=== PATIENT | female | born 1990 | race African-American/Black ===

== ENCOUNTER 2017-08-17 20:14 | Emergency (ER) | payer OTHER ==
[~2017-08-17] VITALS: Ht 160 cm; Wt 125.6 kg
[~2017-08-17 20:14] MED LIST: AMOX875T PO; HYDR-79 PO; PRAZ2CAP2; PROM25SU32 RC; SERT100T8
[2017-08-17 20:15] VITALS: BP 137/68
[2017-08-17] MEDS ORDERED: LIDOCAINE 2%/EPI 1:100,000 20 ML VIAL. IJ ONE (20:45)
[2017-08-17] MEDS ORDERED: HYDROcodone/APAP 5/325MG 1 TAB TABLET PO ONE (20:45)
[2017-08-17] MEDS ORDERED: SULF1TAB23 PO (21:26)
--- NOTE | 2017-08-17 21:26 | PHYS DOC ---
Past History Past Medical History: Migraines Past Surgical History: No Surgical History Smoking: Non-smoker Alcohol Use: None Drug Use: None Adult General Chief Complaint Chief Complaint: ABSCESS HPI HPI Patient is a 27 year old female who presents with thigh abscess. The patient reports 1 week history of abscess to left medial thigh which is becoming larger & more painful. Denies fevers/chills, nausea, vomiting. History of previous abscess to right thigh requiring I&D. Denies history of diabetes. Review of Systems Review of Systems Constitutional: Denies fever or chills HENT: Denies nasal congestion or sore throat Respiratory: Denies cough or shortness of breath Cardiovascular: Denies chest pain GI: Denies abdominal pain, nausea, vomiting Musculoskeletal: Denies back pain or joint pain Integument: Reports abscess Neurologic: Denies headache Current Medications Current Medications Current Medications Medications (Trade) Dose Ordered Sig/Emelyn Start Time Stop Time Status Last Admin Dose Admin Acetaminophen/ Hydrocodone Bitart (Lortab 5/325) 1 tab 1X ONCE 08/17/17 20:45 08/17/17 20:48 DC 08/17/17 21:13 1 TAB Lidocaine/ Epinephrine (Xylocaine 2%-Epi 1:100,000) 20 ml 1X ONCE 08/17/17 20:45 08/17/17 20:48 DC 08/17/17 20:45 20 ML Allergies Allergies Allergies Coded Allergies Type Severity Reaction Last Updated Verified No Known Drug Allergies 10/17/16 No Physical Exam Physical Exam Constitutional: obese, no acute distress, non-toxic appearance. HENT: Normocephalic, atraumatic, bilateral external ears normal, oropharynx moist, nose normal. Eyes: conjunctiva normal, no discharge. Neck: supple, no stridor. Cardiovascular: no edema. Lungs & Thorax: no respiratory distress. Abdomen: nondistended. Skin: left upper thigh medially there is 5 cm area of fluctuance/induration with mild erythema. Extremities: left thigh abscess as above Neurologic: Alert and oriented X 3 Current Patient Data Vital Signs Vital Signs Date Time Temp Pulse Resp B/P (MAP) Pulse Ox O2 Delivery O2 Flow Rate FiO2 08/17/17 21:13 20 98 Room Air 08/17/17 20:15 98.1 96 EKG EKG [] Radiology/Procedures Radiology/Procedures [] Course & Med Decision Making Course & Med Decision Making Pertinent Labs and Imaging studies reviewed. (See chart for details) The patient presents with cutaneous abscess. Gave pain medication, performed I& D. Prescription for bactrim. Recommend wound care, keep packing in place, then okay to soak in warm tub, tylenol or ibuprofen for pain. Follow up here in 2 days for wound check. Come back for high fever, uncontrolled vomiting, spreading erythema/warmth/swelling, any otherwise worsening condition. Discharged home in stable condition. [] Dragon Disclaimer Dragon Disclaimer This chart was dictated in whole or in part using Voice Recognition software in a busy, high-work load, and often noisy Emergency Department environment. It may contain unintended and wholly unrecognized errors or omissions. Incision and Drainage Indication: thigh abscess Procedure: The patient was positioned appropriately and the skin over the incision site was cleaned with alcohol prep pads. Local anesthesia was achieved by injection of lidocaine with epinephrine, 5 mL. An incision was then made over the apex of the abscess and a small amount of purulent/bloody material was expressed. Loculations were broken up with a hemostat. The drainage cavity was then packed with iodoform gauze. The patient tolerated the procedure well. Complications: none Departure Departure: Impression: Primary Impression: Abscess Disposition: 01 HOME, SELF-CARE Condition: STABLE Patient Instructions: Abscess, [id number] Additional Instructions: You were seen in the emergency department today for abscess. The abscess was drained. keep packing in place until it falls out. then you may soak in a warm tub. Take tylenol or ibuprofen for pain & take the antibiotic as prescribed. Come back in 2 days for wound check. Come back sooner for high fever, uncontrolled vomiting, spreading redness/warmth/swelling, any otherwise worsening condition. Scripts Sulfamethoxazole/Trimethoprim (BACTRIM 400-80 MG TABLET) 1 Each Tablet 1 TAB PO BID, #14 TAB Prov: MATT LEE MD 08/17/17 MATT LEE MD Aug 17, 2017 21:26
== END 2017-08-17 21:41 | disposition home or self-care (01) ==
LOC: ER 20:14
DX: L02.416 Cutaneous abscess of left lower limb (principal); G43.909 Migraine, unspecified, not intractable, without status migrainosus
CPT/HCPCS: 10060; 99283-25

== ENCOUNTER 2017-08-18 20:53 | Emergency (ER) | payer OTHER ==
[~2017-08-18] VITALS: Ht 160 cm; Wt 121.5 kg
[~2017-08-18 20:53] MED LIST changes: +SULF1TAB23 PO
[2017-08-18 21:07] VITALS: BP 128/82
--- NOTE | 2017-08-18 21:31 | PHYS DOC ---
General Chief Complaint: WOUND CHECK Stated Complaint: BLOOD FROM BOIL Time Seen by MD: 20:55 Source: patient, old records Exam Limitations: no limitations Problems: History of Present Illness Initial Comments Patient is a 27-year-old female who comes to the ED for a wound check. Patient states and records correlate that she had a left medial thigh abscess I& D yesterday. She states that today when she was removing the packing as directed she felt like it suddenly let go, thinking she may have torn the packing. The wound started bleeding and it took what she describes as a considerable time to get the bleeding to stop. She called and spoke to ED staff and they recommended if she had questions or come back for wound check. On arrival patient states she hasn't had any other new symptoms, she is tolerating the medications well she had her prescriptions filled today. Her vital signs are stable she is afebrile. Timing/Duration: 24 hours Severity: mild Modifying Factors: improves with other Associated Symptoms: other Allergies: Coded Allergies: No Known Drug Allergies (Unverified , 10/17/16) Past Medical History Medical History: migraines Surgical History: noncontributory Family History Significant Family History: no pertinent family hx Social History Smoker: non-smoker Alcohol: none Drugs: none Review of Systems Constitutional: denies chills, denies fever Respiratory: denies cough, denies shortness of breath Cardiovascular: denies chest pain, denies palpitations Gastrointestinal: denies nausea, denies vomiting Skin: see HPI Physical Exam Skin: warm/dry (the site of the left medial thigh I&D wound appears to be healing well there is no surrounding erythema or heat. No purulent discharge just some mild bleeding when manipulating the wound. I did explore the wound with forceps to see if any remaining packing was present and was unable to locate.) Orders, Labs, Meds I reassured the patient. I advised her it was likely that when she felt the packing "let go" she probably released a scab from inside the wound causing the bleeding which resolved prior to ED arrival. Signs and symptoms to monitor as well as indications for urgent return were discussed and the patient's questions were answered to her satisfaction. She expressed agreement and understanding of the treatment plan. Departure Time of Disposition: 21:30 Disposition: 01 HOME, SELF-CARE Diagnosis: wound check Condition: GOOD Patient Instructions: Abscess, Care After, Wound Check Additional Instructions: As discussed your abscess wound appears to be healing well and no packing was noted within. Continue current treatment. Follow-up with your doctor in 3-5 days for recheck. Return to ED with new or changing symptoms. LAMBERT CASAS DO Aug 18, 2017 21:31
== END 2017-08-18 21:46 | disposition home or self-care (01) ==
LOC: ER 20:53
DX: Z48.01 Encounter for change or removal of surgical wound dressing (principal); L02.416 Cutaneous abscess of left lower limb; G43.909 Migraine, unspecified, not intractable, without status migrainosus
CPT/HCPCS: 99281

== ENCOUNTER 2017-08-24 12:22 | Emergency (ER) | payer OTHER ==
[~2017-08-24] VITALS: Ht 160 cm; Wt 121.5 kg
[2017-08-24 12:31] VITALS: BP 148/97
--- NOTE | 2017-08-24 12:47 | PHYS DOC ---
Past History Past Medical History: No Pertinent History Past Surgical History: No Surgical History Smoking: Non-smoker Alcohol Use: None Drug Use: None Adult General Chief Complaint Chief Complaint: DENTAL PROBLEM HPI HPI Patient is a 27 year old F who presents with dental pain over the past 3-4 days. She also said left-sided facial swelling associated with this pain. She was at her pain is worse when biting down and with cold or warm food or drink. No other associated symptoms. No other exacerbating or relieving factors. Review of Systems Review of Systems Constitutional: Denies fever or chills [] Eyes: Denies change in visual acuity, redness, or eye pain [] HENT: Denies nasal congestion or sore throat [] Respiratory: Denies cough or shortness of breath [] Cardiovascular: No additional information not addressed in HPI [] GI: Denies abdominal pain, nausea, vomiting, bloody stools or diarrhea [] : Denies dysuria or hematuria [] Musculoskeletal: Denies back pain or joint pain [] Integument: Denies rash or skin lesions [] Neurologic: Denies headache, focal weakness or sensory changes [] Endocrine: Denies polyuria or polydipsia [] All other systems were reviewed and found to be within normal limits, except as documented in this note. Family History Family History Noncontributory Current Medications Current Medications Medications reviewed Current Medications Medications (Trade) Dose Ordered Sig/Emelyn Start Time Stop Time Status Last Admin Dose Admin Amoxicillin/ Clavulanate Potassium (Augmentin 875/ 125mg) 1 tab 1X ONCE 08/24/17 12:45 08/24/17 12:46 UNV Allergies Allergies Allergies Coded Allergies Type Severity Reaction Last Updated Verified No Known Drug Allergies 10/17/16 No Physical Exam Physical Exam Constitutional: Well developed, well nourished, no acute distress, non-toxic appearance. [] HENT: Normocephalic, atraumatic, bilateral external ears normal, oropharynx moist, pain with palpation on the left lower lateral incisor with gingivitis noted Eyes: EOMI, conjunctiva normal, no discharge. [] Neck: Normal range of motion, no tenderness, supple, no stridor. [] Cardiovascular:Heart rate regular rhythm, no murmur [] Lungs & Thorax: Bilateral breath sounds clear to auscultation []tile masses. [ ] Skin: Warm, dry, no erythema, no rash. [] Well-healing wound on the left upper medial thigh that was previously a abscess treated with incision and drainage Back: No tenderness, no CVA tenderness. [] Extremities: No tenderness, no cyanosis, no clubbing, ROM intact, no edema. [] Neurologic: Alert and oriented X 3, normal motor function, normal sensory function, no focal deficits noted. [] Psychologic: Affect normal, judgement normal, mood normal. [] Current Patient Data Vital Signs Vital Signs Date Time Temp Pulse Resp B/P (MAP) Pulse Ox O2 Delivery O2 Flow Rate FiO2 08/24/17 12:31 98.6 72 20 99 Room Air EKG EKG [] Radiology/Procedures Radiology/Procedures [] Course & Med Decision Making Course & Med Decision Making Pertinent Labs and Imaging studies reviewed. (See chart for details) She was advised to discontinue the oral antibiotic for her previous abscess and to continue the Augmentin prescribed today Dragon Disclaimer Dragon Disclaimer This electronic medical record was generated, in whole or in part, using a voice recognition dictation system. Departure Departure: Impression: Primary Impression: Dental infection Disposition: 01 HOME, SELF-CARE Condition: STABLE Referrals: PCPNO (PCP) Patient Instructions: Dental Abscess Additional Instructions: Breanna was seen in the emergency department for dental pain. No emergency medical condition was found on history or physical exam. She was found have signs or symptoms of dental infection. She was started on Augmentin and advised to discontinue the and about she was put on for her skin infection. She is advised follow-up with a dentist as soon as possible for further management. Scripts Amoxicillin/Potassium Clav (AUGMENTIN 875-125 TABLET) 1 Each Tablet 1 TAB PO BID for 14 Days, #28 TAB Prov: KAREN MALONEY MD 08/24/17 KAREN MALONEY MD Aug 24, 2017 12:47
[2017-08-24] MEDS ORDERED: AMOXICILLIN/K CLAV 875/125MG TABLET. PO ONE (13:00)
[2017-08-24] MEDS ORDERED: AMOX1TAB61 PO (13:08)
[2017-08-27] MEDS ORDERED: MUPI22OI2 TP (02:21)
== END 2017-08-24 13:11 | disposition home or self-care (01) ==
LOC: ER 12:22
DX: K04.7 Periapical abscess without sinus (principal)
CPT/HCPCS: 99283

== ENCOUNTER → 2017-08-26 | Emergency (ER) | payer OTHER ==
[~2017-08-26] VITALS: Ht 160 cm; Wt 121.5 kg
[~2017-08-26] MED LIST changes: +AMOX1TAB61 PO; +KETOROLAC 60 MG/2 ML VIAL. IM ONE; +MUPI22OI2 TP; +ONDANSETRON ODT 4 MG TAB.RAPDIS PO ONE; +diphenhydrAMINE HCL 25 MG CAPSULE PO ONE
[2017-08-27 00:28] VITALS: BP 148/87
[2017-08-27 02:07] LABS: BACTERIA,URINE 0 /HPF (0-FEW); BILIRUBIN,URINE NEG (NEG); CLARITY,URINE CLEAR; COLOR,URINE YELLOW; GLUCOSE,URINE NEG (NEG); NITRITE,URINE NEG (NEG); RBC,URINE RARE /HPF (0-2); SQUAMOUS EPITHELIAL CELL,UR OCC /LPF; UROBILINOGEN,URINE 0.2 mg/dL (0.2 mg/dL); WBC,URINE RARE /HPF (0-4)
--- NOTE | 2017-08-27 02:21 | PHYS DOC ---
Past History Past Medical History: No Pertinent History Past Surgical History: No Surgical History Smoking: Non-smoker Alcohol Use: None Drug Use: None Adult General Chief Complaint Chief Complaint: SKIN PROBLEM HPI HPI Patient is a 27 year old female who presents with rash on her face. The patient states she has been seen multiple times for dental infection, recently seen here & given prescription for augmentin. Now she is concerned that she is having allergic reaction because she has itchy rash around her mouth. She says she stopped taking the antibiotic & her teeth still hurt. She denies fevers/ chills, nausea, vomiting. Denies face/tongue/lip swelling, shortness of breath , urticaria. She says she saw her dentist this week & did not receive any additional treatment for dental pain/infection. Review of Systems Review of Systems Constitutional: Denies fever or chills HENT: Denies nasal congestion or sore throat Respiratory: Denies cough or shortness of breath Cardiovascular: Denies chest pain GI: Denies abdominal pain, nausea, vomiting Musculoskeletal: Denies back pain or joint pain Integument: Reports rash Neurologic: Denies headache All other systems were reviewed and found to be within normal limits, except as documented in this note. Current Medications Current Medications Current Medications Medications (Trade) Dose Ordered Sig/Emelyn Start Time Stop Time Status Last Admin Dose Admin Diphenhydramine HCl (Benadryl) 25 mg 1X ONCE 08/27/17 01:00 08/27/17 01:04 DC 08/27/17 01:31 25 MG Ketorolac Tromethamine (Toradol) 60 mg 1X ONCE 08/27/17 00:30 08/27/17 01:04 DC 08/27/17 01:31 60 MG Ondansetron HCl (Zofran Odt) 4 mg 1X ONCE 08/27/17 01:00 08/27/17 01:04 DC 08/27/17 01:31 4 MG Allergies Allergies Allergies Coded Allergies Type Severity Reaction Last Updated Verified No Known Drug Allergies 10/17/16 No Physical Exam Physical Exam Constitutional: obese, no acute distress, non-toxic appearance. HENT: Normocephalic, atraumatic, bilateral external ears normal, oropharynx moist, nose normal. perioral dermatitis with scattered maculopapular lesions to left side, slight erythema, no associated cellulitis or abscess, possible ibrahim crust on some lesions. no face/tongue/lip swelling. no gingival erythema, no dental abscess, no trismus or jaw swelling. Eyes: conjunctiva normal, no discharge. Neck: supple, no stridor. Cardiovascular: RRR, no murmurs, no edema. Lungs & Thorax: LCTAB, no wheezing, no respiratory distress. Abdomen:nondistended. Skin: facial rash as above. Extremities: No deformity Neurologic: Alert and oriented X 3 Current Patient Data Vital Signs Vital Signs Date Time Temp Pulse Resp B/P (MAP) Pulse Ox O2 Delivery O2 Flow Rate FiO2 08/27/17 00:28 98.5 70 20 98 Room Air Lab Results Laboratory Tests Test 08/27/17 01:40 Urine Collection Type Unknown Urine Color Yellow Urine Clarity Clear Urine pH 5.0 Urine Specific [place] 1.010 Urine Protein Neg (NEG-TRACE) Urine Glucose (UA) Neg mg/dL (NEG) Urine Ketones (Stick) Trace mg/dL (NEG) Urine Blood Trace (NEG) Urine Nitrite Neg (NEG) Urine Bilirubin Neg (NEG) Urine Urobilinogen Dipstick 0.2 mg/dL (0.2 mg/dL) Urine Leukocyte Esterase Neg (NEG) Urine RBC Rare /HPF (0-2) Urine WBC Rare /HPF (0-4) Urine Squamous Epithelial Cells Occ /LPF Urine Bacteria 0 /HPF (0-FEW) EKG EKG [] Radiology/Procedures Radiology/Procedures [] Course & Med Decision Making Course & Med Decision Making Pertinent Labs and Imaging studies reviewed. (See chart for details) The patient presents with facial rash, not obviously an allergic reaction. Will give mupirocin for topical application. For now there is no sign of dental infection so okay to hold augmentin due to patient's concerns of allergy. Would recommend rest, hydration, skin hygiene, follow up with dentist for ongoing dental problems. Return for symptoms of anaphylaxis/angioedema, any otherwise worsening condition. Discharged home in stable condition. [] Dragon Disclaimer Dragon Disclaimer This electronic medical record was generated, in whole or in part, using a voice recognition dictation system. Departure Departure: Impression: Primary Impression: Rash Disposition: HOME, SELF-CARE Condition: STABLE Referrals: PCP,NO (PCP) Patient Instructions: Rash, [id number] Additional Instructions: You were seen in the emergency department today for rash. This could be allergic. Please take benadryl for itching. You also may apply the ointment to the sores around your mouth. Take tylenol or ibuprofen for dental pain. Follow up with your dentist as soon as possible regarding dental pain. Scripts Mupirocin (MUPIROCIN) 22 Gm Oint...g. 1 TRENA TP TID, #15 GM Prov: MATT LEE MD 08/27/17 MATT LEE MD Aug 27, 2017 02:21
== END | disposition home or self-care (01) ==
LOC: ER 23:43
DX: R21 Rash and other nonspecific skin eruption (principal); L29.9 Pruritus, unspecified
CPT/HCPCS: 81001; 81025; 96372; 99283-25

== ENCOUNTER 2018-11-15 17:11 | Emergency (ER) | payer OTHER ==
[~2018-11-15] VITALS: Ht 160 cm; Wt 121.6 kg
[~2018-11-15 17:11] MED LIST changes: +HYDR-1179 PO; -HYDR-79 PO; -KETOROLAC 60 MG/2 ML VIAL. IM ONE; -ONDANSETRON ODT 4 MG TAB.RAPDIS PO ONE; -diphenhydrAMINE HCL 25 MG CAPSULE PO ONE
[2018-11-15 17:29] VITALS: BP 132/82
--- NOTE | 2018-11-15 18:15 | ED.ADGEN ---
Past History Past Medical History: No Pertinent History Past Surgical History: No Surgical History Smoking: Non-smoker Alcohol Use: None Drug Use: None Adult General Chief Complaint Chief Complaint " I sick for over a week. ... I'm so congested and coughing so much now. ...I need to get seen.... 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 Patient is exposed to children at work have been sick. Patient denies any travel. Patient denies any specific ill contacts. Patient has had flu vaccination this season. Patient denies any history immunosuppression. Review of Systems Review of Systems Constitutional: Complaints of fever or chills [] Eyes: Denies change in visual acuity, redness, or eye pain [] HENT: Complains nasal congestion and sore throat [] Respiratory: Complains of a non-productive cough and wheezing Cardiovascular: No additional information not addressed in HPI [] GI: Denies abdominal pain, nausea, vomiting, bloody stools or diarrhea [] : Denies dysuria or hematuria [] Musculoskeletal: Denies back pain or joint pain [] Integument: Denies rash or skin lesions [] Neurologic: Denies headache, focal weakness or sensory changes [] Endocrine: Denies polyuria or polydipsia [] All other systems were reviewed and found to be within normal limits, except as documented in this note. Family History Family History Noncontributory Current Medications Current Medications Current Medications Medications (Trade) Dose Ordered Sig/Emelyn Start Time Stop Time Status Last Admin Dose Admin Prednisone (Prednisone) 50 mg 1X ONCE 11/15/18 18:15 11/15/18 18:16 DC 11/15/18 18:21 50 MG See nursing for home medications Allergies Allergies Allergies Coded Allergies Type Severity Reaction Last Updated Verified No Known Drug Allergies 10/17/16 No Physical Exam Physical Exam Constitutional: Moderately acute distress, non-toxic appearance. [] HENT: Normocephalic, atraumatic, bilateral external ears normal, oropharynx moist,nasal drainage and pharyngeal erythema, no oral exudates, nose: Turbinates and clear rhinorrhea Eyes: PERRLA, EOMI, conjunctiva normal, no discharge. [] Neck: Normal range of motion, no tenderness, supple, no stridor. [] Cardiovascular: Tachycardia Heart rate regular rhythm, no murmur [] Lungs & Thorax: Bilateral breath sounds equal at apex with scattered wheezing on auscultation [] Abdomen: Bowel sounds normal, soft, no tenderness, no masses, no pulsatile masses. Obese Skin: Warm, dry, no erythema, no rash. [] Back: No tenderness, no CVA tenderness. [] Extremities: No tenderness, no cyanosis, no clubbing, ROM intact, trace ankle edema. [] Neurologic: Alert and oriented X 3, normal motor function, normal sensory function, no focal deficits noted. [] Psychologic: Affect anxious, judgement normal, mood normal. [] Current Patient Data Vital Signs Vital Signs Date Time Temp Pulse Resp B/P (MAP) Pulse Ox O2 Delivery O2 Flow Rate FiO2 11/15/18 17:29 97.9 78 24 98 Room Air Lab Results Laboratory Tests Test 11/15/18 18:05 Urine Collection Type Unknown Urine Color Yellow Urine Clarity Clear Urine pH 5.5 Urine Specific [place] 1.015 Urine Protein Neg (NEG-TRACE) Urine Glucose (UA) Neg mg/dL (NEG) Urine Ketones (Stick) Neg mg/dL (NEG) Urine Blood Trace (NEG) Urine Nitrite Neg (NEG) Urine Bilirubin Neg (NEG) Urine Urobilinogen Dipstick 0.2 mg/dL (0.2 mg/dL) Urine Leukocyte Esterase Neg (NEG) Urine RBC Rare /HPF (0-2) Urine WBC 0 /HPF (0-4) Urine Squamous Epithelial Cells Occ /LPF Urine Bacteria Few /HPF (0-FEW) Urine Opiates Screen Neg (NEG) Urine Methadone Screen Neg (NEG) Urine Barbiturates Neg (NEG) Urine Phencyclidine Screen Neg (NEG) Urine Amphetamine/Methamphetamine Neg (NEG) Urine Benzodiazepines Screen Neg (NEG) Urine Cocaine Screen Neg (NEG) Urine Cannabinoids Screen Neg (NEG) Urine Ethyl Alcohol Neg (NEG) Influenza Type A (Rapid) Negative (NEGATIVE) Influenza Type B (Rapid) Negative (NEGATIVE) Group A Streptococcus Rapid Negative (NEGATIVE) EKG EKG [] Radiology/Procedures Radiology/Procedures [] Course & Med Decision Making Course & Med Decision Making Pertinent Labs and Imaging studies reviewed. (See chart for details). Push fluids and fruit juices. Get adequate rest. Use normal saline nasal rinses. Use Flonase 2 puffs each nasal twice a day. Gargle with Listerine. Take Tylenol ibuprofen for discomfort and fever. For marked discomfort take Vicoprofen up to 4 times a day. Benadryl 25-50 mg a day may be helpful for congestion and rhinorrhea. Follow-up primary care. Return if any concerns. [] Final Impression Final Impression 1. Upper respiratory infection-viral syndrome 2. Bronchitis[]-viral syndrome Dragon Disclaimer Dragon Disclaimer This electronic medical record was generated, in whole or in part, using a voice recognition dictation system. Dragon Disclaimer This chart was dictated in whole or in part using Voice Recognition software in a busy, high-work load, and often noisy Emergency Department environment. It may contain unintended and wholly unrecognized errors or omissions. Discharge Summary Visit Information Final Diagnosis Problems Medical Problems: (1) Viral syndrome Status: Acute Brief Hospital Course Allergies Allergies Coded Allergies Type Severity Reaction Last Updated Verified No Known Drug Allergies 10/17/16 No Vital Signs Vital Signs Date Time Temp Pulse Resp B/P (MAP) Pulse Ox O2 Delivery O2 Flow Rate FiO2 11/15/18 17:29 97.9 78 24 98 Room Air Lab Results Laboratory Tests Test 11/15/18 18:05 Urine Collection Type Unknown Urine Color Yellow Urine Clarity Clear Urine pH 5.5 Urine Specific [place] 1.015 Urine Protein Neg (NEG-TRACE) Urine Glucose (UA) Neg mg/dL (NEG) Urine Ketones (Stick) Neg mg/dL (NEG) Urine Blood Trace (NEG) Urine Nitrite Neg (NEG) Urine Bilirubin Neg (NEG) Urine Urobilinogen Dipstick 0.2 mg/dL (0.2 mg/dL) Urine Leukocyte Esterase Neg (NEG) Urine RBC Rare /HPF (0-2) Urine WBC 0 /HPF (0-4) Urine Squamous Epithelial Cells Occ /LPF Urine Bacteria Few /HPF (0-FEW) Urine Opiates Screen Neg (NEG) Urine Methadone Screen Neg (NEG) Urine Barbiturates Neg (NEG) Urine Phencyclidine Screen Neg (NEG) Urine Amphetamine/Methamphetamine Neg (NEG) Urine Benzodiazepines Screen Neg (NEG) Urine Cocaine Screen Neg (NEG) Urine Cannabinoids Screen Neg (NEG) Urine Ethyl Alcohol Neg (NEG) Influenza Type A (Rapid) Negative (NEGATIVE) Influenza Type B (Rapid) Negative (NEGATIVE) Group A Streptococcus Rapid Negative (NEGATIVE) Brief Hospital Course 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 Discharge Information Condition at Discharge: Improved, Stable Disposition/Orders: D/C to Home Dischare Medications Current Medications Prednisone (Prednisone) 50 mg 1X ONCE PO Last administered on 11/15/18at 18:21; Admin Dose 50 MG; Start 11/15/18 at 18:15; Stop 11/15/18 at 18:16; Status DC Active Scripts Active Afrin (Oxymetazoline Hcl) 30 Ml [place] 30 Ml NS USE ONLY AT NIGHT Flonase Allergy Relief (Fluticasone Propionate) 9.9 Ml [place].susp 2 Sprays NS BID 30 Days Hydrocodone-Ibuprofen 7.5-200 (Hydrocodone/Ibuprofen) 1 Each Tablet 1 Tab PO PRN Q6HRS PRN Mupirocin 22 Gm Oint...g. 1 Von TP TID Augmentin 875-125 Tablet (Amoxicillin/Potassium Clav) 1 Each Tablet 1 Tab PO BID 14 Days Bactrim 400-80 Mg Tablet (Sulfamethoxazole/Trimethoprim) 1 Each Tablet 1 Tab PO BID Phenergan (Promethazine HCl) 25 Mg Supp.rect 25 Mg RC QIDPRN PRN Hydrocodone-Ibuprofen 7.5-200 (Hydrocodone/Ibuprofen) 1 Each Tablet 1 Tab PO PRN Q6HRS PRN Amoxicillin 875 Mg Tablet 1 Tab PO BID ILANA ANDERSON MD Nov 15, 2018 18:15
[2018-11-15] MEDS: predniSONE 10 MG TABLET PO ONE (18:21)
[2018-11-15 18:31] LABS: BARBITURATES NEG (NEG); BENZODIAZEPINES NEG (NEG); CANNABINOIDS NEG (NEG); COCAINE NEG (NEG); METHADONE NEG (NEG); OPIATES NEG (NEG); PHENCYCLIDINE NEG (NEG)
[2018-11-15 18:32] LABS: AMPHETAMINE/METHAMPHETAMINE NEG (NEG)
[2018-11-15 18:37] LABS: CLARITY,URINE CLEAR; COLOR,URINE YELLOW
[2018-11-15 18:38] LABS: BACTERIA,URINE FEW /HPF (0-FEW); BILIRUBIN,URINE NEG (NEG); GLUCOSE,URINE NEG (NEG); NITRITE,URINE NEG (NEG); RBC,URINE RARE /HPF (0-2); SQUAMOUS EPITHELIAL CELL,UR OCC /LPF; UROBILINOGEN,URINE 0.2 mg/dL (0.2 mg/dL); WBC,URINE 0 /HPF (0-4)
[2018-11-15 18:53] LABS: INFLUENZA A PATIENT NEGATIVE (NEGATIVE); INFLUENZA B PATIENT NEGATIVE (NEGATIVE)
[2018-11-15] MEDS ORDERED: OXYM30SP NS (19:07)
[2018-11-15] MEDS ORDERED: HYDR-1179 PO (19:07)
[2018-11-15] MEDS ORDERED: FLUT9.9S NS (19:07)
== END 2018-11-15 19:12 | disposition home or self-care (01) ==
LOC: ER 17:11
DX: J06.9 Acute upper respiratory infection, unspecified (principal); J20.8 Acute bronchitis due to other specified organisms; B97.89 Other viral agents as the cause of diseases classified elsewhere
CPT/HCPCS: 36415; 80307; 81001; 87070; 87804; 87880; 99283; J7512

== ENCOUNTER 2019-07-18 18:00 | Emergency (ER) | payer OTHER ==
[~2019-07-18] VITALS: Ht 160 cm; Wt 121.5 kg
[~2019-07-18 18:00] MED LIST changes: +FLUT9.9S NS; +OXYM30SP NS
[2019-07-18 18:30] VITALS: BP 149/100
--- NOTE | 2019-07-18 20:27 | PHYS DOC ---
Past History Past Medical History: No Pertinent History Past Surgical History: No Surgical History Smoking: Non-smoker Alcohol Use: None Drug Use: None Adult General Chief Complaint Chief Complaint: KNEE INJURY HPI HPI Patient is a 29 year old female who presents with complaint of knee injury. The patient states that this morning just after 0900 while at work she accidentally slipped on a wet surface. She states that her left knee came down to the floor in her right leg extended out in front of her during this slipped. She states that she felt a pop along the right side of her leg. States that she has been having worsening pain to her right knee. Notes only mild pain to her left knee where her knee hit the floor. States that she is able to bear full weight on the left lower extremity and walk without difficulty. States that she is limping on her right leg currently. Patient was evaluated at urgent care where she was treated with an Douglas bandage the right knee. She states however she is having worsening pain to this knee and is concerned that there is a possible fracture or other serious injury. She thus came to the emergency department to have this evaluated. Review of Systems Review of Systems Constitutional: Denies fever or chills [] Musculoskeletal: Right knee pain[] Integument: Denies rash or skin lesions [] Neurologic: Denies headache, focal weakness or sensory changes [] All other systems were reviewed and found to be within normal limits, except as documented in this note. Allergies Allergies Allergies Coded Allergies Type Severity Reaction Last Updated Verified No Known Drug Allergies 10/17/16 No Physical Exam Physical Exam Constitutional: Well developed, well nourished, no acute distress, non-toxic appearance. [] Skin: Warm, dry, no erythema, no rash. [] Extremities: Left anterior tibial plateau with small contusion on the medial aspect, full range of motion in left knee, no significant bony tenderness, right knee with no significant swelling or deformity, tenderness palpation along lateral aspect of the right knee near the joint space as well as along the right tibial plateau, limited range of motion and right knee secondary to pain, normal distal pulses and sensation in all 4 extremities. [] Neurologic: Alert and oriented X 3, normal motor function, normal sensory function, no focal deficits noted. [] Current Patient Data Vital Signs Vital Signs Date Time Temp Pulse Resp B/P (MAP) Pulse Ox O2 Delivery O2 Flow Rate FiO2 07/18/19 18:30 98.9 91 20 99 Room Air Lab Results None performed EKG EKG Not performed[] Radiology/Procedures Radiology/Procedures [address] [address] IMAGING REPORT Signed PATIENT: JEN AC ACCOUNT: [id number] : 1990 LOCATION: ER AGE: 29 SEX: F EXAM STATUS: REG ER ORD. PHYSICIAN: JASON JUNIOR MD REASON: Fall, right knee injury with pain PROCEDURE: KNEE RIGHT 3V Exam: Right knee 3 views INDICATION: Fall, right knee injury TECHNIQUE: Frontal, lateral and oblique views of the right knee. Comparisons: None FINDINGS: Bone mineralization is normal. No acute or healed fractures. Soft tissues are unremarkable. Joint spaces are well-maintained. IMPRESSION: No acute osseous abnormality. Electronically signed by: Radha Flores MD (07/18/2019 9:06 PM) [facility] DICTATED AND SIGNED BY: RADHA FLORES MD DATE: 07/18/192105 CC: JASON JUNIOR MD; PCP,NO ~ [] Course & Med Decision Making Course & Med Decision Making Pertinent Labs and Imaging studies reviewed. (See chart for details) X-rays negative for fracture. Right knee injury appears consistent with right knee strain. Advised continued use of Douglas bandage right knee and provided crutches to assist with ambulation. Recommended follow-up with primary care provider in the next 3-4 days for reevaluation. Advised use of ibuprofen and Flexeril which was prescribed at today's visit. Recommended return to emergency department for any worsening symptoms. Patient was understanding and in agreement with treatment plan.[] Dragon Disclaimer Dragon Disclaimer This electronic medical record was generated, in whole or in part, using a voice recognition dictation system. Departure Departure: Impression: Primary Impression: Strain of right knee Additional Impression: Contusion of left knee Disposition: HOME, SELF-CARE Condition: STABLE Referrals: PCP,NO (PCP) Patient Instructions: Knee Pain Additional Instructions: Follow-up with your primary care provider in 3 days for reevaluation. Return to the emergency department for any worsening symptoms. Scripts Ibuprofen (IBUPROFEN) 600 Mg Tablet 600 MG PO Q6HRS PRN for PAIN, #30 TAB Prov: JASON JUNIOR MD 07/18/19 Cyclobenzaprine Hcl (CYCLOBENZAPRINE HCL) 10 Mg Tablet 1 TAB PO TID PRN for MUSCLE PAIN, #30 TAB Prov: JASON JUNIOR MD 07/18/19 Problem Qualifiers Primary Impression: Strain of right knee Encounter type: initial encounter Qualified Codes: S86.911A - Strain of unspecified muscle(s) and tendon(s) at lower leg level, right leg, initial encounter Additional Impression: Contusion of left knee Encounter type: initial encounter Qualified Codes: S80.02XA - Contusion of left knee, initial encounter JASON JUNIOR MD Jul 18, 2019 20:27
--- NOTE | 2019-07-18 21:08 | RAD ---
Exam: Right knee 3 views INDICATION: Fall, right knee injury TECHNIQUE: Frontal, lateral and oblique views of the right knee. Comparisons: None FINDINGS: Bone mineralization is normal. No acute or healed fractures. Soft tissues are unremarkable. Joint spaces are well-maintained. IMPRESSION: No acute osseous abnormality. Electronically signed by: Radha Flores MD (07/18/2019 9:06 PM) [facility]
[2019-07-18] MEDS ORDERED: CYCL-331 PO (21:24)
[2019-07-18] MEDS ORDERED: IBUP600T16 PO (21:24)
== END 2019-07-18 21:30 | disposition home or self-care (01) ==
LOC: ER 18:00
DX: S86.911A Strain of unspecified muscle(s) and tendon(s) at lower leg level, right leg, initial encounter (principal); W01.0XXA Fall on same level from slipping, tripping and stumbling without subsequent striking against object, initial encounter; Y93.89 Activity, other specified; Y92.89 Other specified places as the place of occurrence of the external cause; Y99.0 Civilian activity done for income or pay
CPT/HCPCS: 73562; 99284

== ENCOUNTER 2019-10-28 16:53 | Emergency (ER) | payer OTHER ==
[~2019-10-28 16:53] MED LIST changes: +CYCL-331 PO; +IBUP600T16 PO; -OXYM30SP NS; +OXYM30SP25 NS
[2019-10-28 17:25] VITALS: BP 153/91
[2019-10-28] MEDS ORDERED: DOXY100C2 PO (17:41)
--- NOTE | 2019-10-28 18:09 | PHYS DOC ---
Past History Past Medical History: No Pertinent History Past Surgical History: No Surgical History Smoking: Non-smoker Alcohol Use: Heavy Drug Use: None Adult General Chief Complaint Chief Complaint: ABSCESS HPI HPI Patient is a 29-year-old female presenting with abscess on the right arm. She had a lump in the right arm for 2 weeks now gets worse when she tries to lift something over her head at [email or web address] where she works no fever Allergies Allergies Allergies Coded Allergies Type Severity Reaction Last Updated Verified No Known Drug Allergies 10/17/16 No Physical Exam Physical Exam Constitutional: Well developed, well nourished, no acute distress, non-toxic appearance. [] HENT: Normocephalic, atraumatic, bilateral external ears normal, oropharynx moist, no oral exudates, nose normal. [] Eyes: PERRLA, EOMI, conjunctiva normal, no discharge. [] Skin: There is sebaceous cyst in the right axilla approximately 2 cm minimal induration Back: No tenderness, no CVA tenderness. [] Current Patient Data Vital Signs Vital Signs Date Time Temp Pulse Resp B/P (MAP) Pulse Ox O2 Delivery O2 Flow Rate FiO2 10/28/19 17:25 98.0 79 18 100 Room Air EKG EKG [] Radiology/Procedures Radiology/Procedures [] Course & Med Decision Making Course & Med Decision Making Pertinent Labs and Imaging studies reviewed. (See chart for details) []29-year-old female presenting with axilla sebaceous cyst possible abscess [place] note: Verbal consent obtained area was prepped in usual fashion lidocaine was used for anesthesia the total size is approximately 2 cm a half a second incision was made some cottage cheese sebaceous material was removed the wound was explored packed with sterile gauze and patient was given good wound care instructions Dragon Disclaimer Dragon Disclaimer This electronic medical record was generated, in whole or in part, using a voice recognition dictation system. Departure Departure: Impression: Primary Impression: Abscess Disposition: 01 HOME, SELF-CARE Condition: STABLE Patient Instructions: Abscess, [id number] Scripts Doxycycline Hyclate (DOXYCYCLINE HYCLATE) 100 Mg Capsule 1 CAP PO BID for skin, #20 CAP Prov: PEACE HRAO MD 10/28/19 PEACE HARO MD Oct 28, 2019 18:09
== END 2019-10-28 17:45 | disposition home or self-care (01) ==
LOC: ER 16:53
DX: L02.413 Cutaneous abscess of right upper limb (principal); F10.20 Alcohol dependence, uncomplicated; Y90.9 Presence of alcohol in blood, level not specified
CPT/HCPCS: 10060; 99283

== ENCOUNTER 2019-11-12 21:37 | Emergency (ER) | payer OTHER ==
[~2019-11-12] VITALS: Ht 160 cm; Wt 121.5 kg
[~2019-11-12 21:37] MED LIST changes: +DOXY100C2 PO
--- NOTE | 2019-11-12 21:42 | PHYS DOC ---
Past History Past Medical History: No Pertinent History, Migraines Past Surgical History: No Surgical History Smoking: Non-smoker Alcohol Use: Heavy Drug Use: None Adult General Chief Complaint Chief Complaint: HEADACHE ".. I am having a migraine.. I have not had one for a while.. nausea....I dont want any big work up.. My prior CT have been negative.. just want treatment for symptoms.. No labs. No xrays.. " HPI HPI Patient is a 29 year old female who presents with above hx and complaints of headache. Patient states her scalp was tender to outpatient. This is a typical presentation for her migraine headaches. Patient does have some mild photophobia and nausea. No history of trauma. No history of fevers. No history immunosuppression. Has had previous spinal tap and CT of head with no abnormal findings. Patient denies any travel or specific ill contacts. No history immunosuppression. Patient states her presentation denies like typical prior migraine episodes. No history of IV drug use. Patient normally follows with Dr. Donovan. Patient denies any specific ill contacts. Patient works at [email or web address] here in [place]. Review of Systems Review of Systems Constitutional: Denies fever or chills [] Eyes: Denies change in visual acuity, redness, or eye pain [] HENT: Denies nasal congestion or sore throat [] Respiratory: Denies cough or shortness of breath [] Cardiovascular: No additional information not addressed in HPI [] GI: Denies abdominal pain, , vomiting, bloody stools or diarrhea [. Pt. does have some complaints of ]nausea : Denies dysuria or hematuria [] Musculoskeletal: Denies back pain or joint pain [] Integument: Denies rash or skin lesions [] Neurologic: Patient complains of migraine headache. Patient denies, focal weakness or sensory changes [] Endocrine: Denies polyuria or polydipsia [] All other systems were reviewed and found to be within normal limits, except as documented in this note. Family History Family History Her mother has migraine headaches Current Medications Current Medications See nursing for home medications Allergies Allergies Allergies Coded Allergies Type Severity Reaction Last Updated Verified No Known Drug Allergies 10/17/16 No Physical Exam Physical Exam Constitutional: Mild distress, non-toxic appearance. [] HENT: Normocephalic, atraumatic, bilateral external ears normal, oropharynx moist, no oral exudates, nose normal. [] Eyes: PERRLA, EOMI, conjunctiva normal, no discharge. [] Recently has new glasses ( No complaints of eye strain or finding s of limbus injection) Neck: Normal range of motion, no tenderness, supple, no stridor. [] Cardiovascular:Heart rate regular rhythm, no murmur [] Lungs & Thorax: Bilateral breath sounds equal at apex on auscultation [] Abdomen: Bowel sounds normal, soft, no tenderness, no masses, no pulsatile masses. [Obese Skin: Warm, dry, no erythema, no rash. [] Back: No tenderness, no CVA tenderness. [] Extremities: No tenderness, no cyanosis, no clubbing, ROM intact, no edema. [] Neurologic: Alert and oriented X 3, normal motor function, normal sensory function, no focal deficits noted. []DTRs +2 patella and brachial. 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 Ambulatory without problems. Psychologic: Affect normal, judgement normal, mood normal. [] EKG EKG Patient deferred EKG[] Radiology/Procedures Radiology/Procedures Patient deferred CT[] Course & Med Decision Making Course & Med Decision Making Pertinent Labs and Imaging studies reviewed. (See chart for details) patient deferred labs \\ Patient push fluids. Patient take Tylenol and ibuprofen for pain. For marked discomfort may take Vicoprofen up to 4 times a day. Patient take Zofran 8 mg up 4 times a day for active nausea or vomiting. Patient to get adequate rest. Patient return if any concerns. Patient may try Imitrex 100 mg at the beginning of headache. Never take more than 100 mg in a 24-hour period. Patient re commended follow-up with neurology if migraines become persistent. Patient return if any concerns. Patient exhibits UCAR capacity. Seems aware of risks of limited evaluation and treatment based only on symptoms.. Impression- 1. Migraine 2. Morbid obesity [] Dragon Disclaimer Dragon Disclaimer This electronic medical record was generated, in whole or in part, using a voice recognition dictation system. Departure Departure: Disposition: 01 HOME/RESIDENCE PRIOR TO ADM Condition: STABLE Referrals: NILSA DONOVAN MD (PCP) Scripts Sumatriptan Succinate (IMITREX) 100 Mg Tablet 100 MG PO 1X PRN PRN for at begininig of migraine-, #10 TAB Prov: ILANA ANDERSON MD 11/12/19 Hydrocodone/Ibuprofen (HYDROCODONE-IBUPROFEN 7.5-200 ) 1 Each Tablet 1 TAB PO PRN Q6HRS PRN for PAIN, #30 TAB 0 Refills Prov: ILANA ANDERSON MD 11/12/19 Ondansetron Hcl (ZOFRAN) 8 Mg Tablet 8 MG PO QIDPRN PRN for nausea and headache, #30 BOTTLE Prov: ILANA ANDERSON MD 11/12/19 Dragon Disclaimer This chart was dictated in whole or in part using Voice Recognition software in a busy, high-work load, and often noisy Emergency Department environment. It may contain unintended and wholly unrecognized errors or omissions. Dragon Disclaimer This chart was dictated in whole or in part using Voice Recognition software in a busy, high-work load, and often noisy Emergency Department environment. It may contain unintended and wholly unrecognized errors or omissions. ILANA ANDERSON MD Nov 12, 2019 21:42
[2019-11-12 22:54] LABS: BARBITURATES NEG (NEG); BENZODIAZEPINES NEG (NEG); CANNABINOIDS NEG (NEG); COCAINE NEG (NEG); METHADONE NEG (NEG); OPIATES NEG (NEG); PHENCYCLIDINE NEG (NEG)
[2019-11-12 22:59] LABS: BACTERIA,URINE 0 /HPF (0-FEW); BILIRUBIN,URINE NEG (NEG); CLARITY,URINE CLEAR; COLOR,URINE YELLOW; GLUCOSE,URINE NEG (NEG); NITRITE,URINE NEG (NEG); RBC,URINE OCC /HPF (0-2); SQUAMOUS EPITHELIAL CELL,UR OCC /LPF; UROBILINOGEN,URINE 0.2 mg/dL (0.2 mg/dL)
[2019-11-12 23:01] LABS: AMPHETAMINE/METHAMPHETAMINE NEG (NEG)
[2019-11-12] MEDS ORDERED: HYDR-1179 PO (23:27)
[2019-11-12] MEDS ORDERED: SUMA100T3 PO (23:27)
[2019-11-12] MEDS ORDERED: ONDA8TAB9 PO (23:27)
[2019-11-12] MEDS: ACETAMINOPHEN 500 MG TABLET PO ONE ×2 (23:38→23:45)
[2019-11-12] MEDS ORDERED: SUMAtriptan SUCC 6 MG/0.5 ML VIAL SQ ONE (23:45)
[2019-11-12] MEDS ORDERED: KETOROLAC 60 MG/2 ML VIAL. IM ONE (23:45)
[2019-11-12] MEDS ORDERED: ONDANSETRON ODT 4 MG TAB.RAPDIS PO ONE (23:45)
[2019-11-13 00:30] VITALS: BP 162/91
== END 2019-11-13 00:32 | disposition home or self-care (01) ==
LOC: ER 21:37
DX: G43.909 Migraine, unspecified, not intractable, without status migrainosus (principal); H53.149 Visual discomfort, unspecified; R11.0 Nausea; E66.01 Morbid (severe) obesity due to excess calories; F10.10 Alcohol abuse, uncomplicated; Z68.42 Body mass index [BMI] 45.0-49.9, adult
CPT/HCPCS: 36415; 80307; 81001; 81025; 96372; 99284; J1885; J3030; Q0162

== ENCOUNTER 2020-04-11 07:25 | Emergency (ER) | payer OTHER ==
[~2020-04-11] VITALS: Ht 160 cm; Wt 123.6 kg
[~2020-04-11 07:25] MED LIST changes: +ONDA8TAB9 PO; +SUMA100T3 PO
[2020-04-11 07:37] VITALS: BP 124/83
[2020-04-11] MEDS ORDERED: AZIT250T PO (07:40)
--- NOTE | 2020-04-11 07:41 | PHYS DOC ---
Past History Past Medical History: Migraines Past Surgical History: No Surgical History Smoking: Non-smoker Alcohol Use: Rarely Drug Use: None General Adult EDM: Chief Complaint: FACE PAIN HPI: HPI: Patient is a 29-year-old female who presents to the emergency department for evaluation of sinus pressure, which has been present for the past week. She has had some clear drainage, with no fevers. She denies any vision changes, headache, shortness of breath, sore throat or voice changes. She has tried several bqlv-eqq-ewjxyof medications, including antihistamines and decongestants without significant improvement in her symptoms. She has a history of similar symptoms of sinus infections in the past. There are no alleviating or exacerbating factors to her symptoms. Review of Systems: Review of Systems: Constitutional: Denies fever or chills Eyes: Denies change in visual acuity HENT: Denies otalgia or sore throat Respiratory: Denies cough or shortness of breath Integument: Denies rash Neurologic: Denies headache, focal weakness or sensory changes Heart Score: Risk Factors: Risk Factors: DM, Current or recent (<one month) smoker, HTN, HLP, family history of CAD, obesity. Risk Scores: Score 0 - 3: 2.5% MACE over next 6 weeks - Discharge Home Score 4 - 6: 20.3% MACE over next 6 weeks - Admit for Clinical Observation Score 7 - 10: 72.7% MACE over next 6 weeks - Early Invasive Strategies Allergies: Allergies: Allergies Coded Allergies Type Severity Reaction Last Updated Verified No Known Drug Allergies 10/17/16 No Physical Exam: PE: PHYSICAL EXAM: CONSTITUTIONAL: Well developed, well nourished HEAD: normocephalic, atraumatic EENT: PERRL, EOMI. Conjunctivae normal color, sclerae non-icteric; moist mucous membranes. There is mild tenderness to palpation to the paranasal and maxillary sinuses bilaterally. Oropharynx is unremarkable. NECK: Supple, non-tender; no meningismus. LUNGS: Lungs CTA, breathing even and unlabored. Normal air movement. HEART: Regular rate and rhythm, no murmur CHEST: No deformity; non-tender NEURO: Alert; normal speech and cognition; CN's grossly intact; strength grossly intact without focal deficit. EKG: EKG: [] Radiology/Procedures: Radiology/Procedures: [] Course & Med Decision Making: Course & Med Decision Making Patient remains stable. I discussed diagnosis, the need for close follow-up, and return precautions. Dragon Disclaimer: Dragon Disclaimer: This electronic medical record was generated, in whole or in part, using a voice recognition dictation system. Departure Departure: Impression: Primary Impression: Sinusitis Disposition: HOME/RESIDENCE PRIOR TO ADM Condition: STABLE Referrals: NILSA DONOVAN MD (PCP) Patient Instructions: Sinusitis Additional Instructions: Continue using Claritin and eczs-onc-yrwgzpq decongestants as needed for relief. Use as directed. Scripts Azithromycin (ZITHROMAX) 250 Mg Tablet 1 PKG PO UD for -, #6 TAB Prov: NUHA CRAIG MD 04/11/20 Justification of Admission: Justification of Admission: Justification of Admission Dx: N/A NUHA CRAIG MD Apr 11, 2020 07:41
== END 2020-04-11 07:47 | disposition home or self-care (01) ==
LOC: ER 07:25
DX: J32.9 Chronic sinusitis, unspecified (principal); G43.909 Migraine, unspecified, not intractable, without status migrainosus
CPT/HCPCS: 99283

== ENCOUNTER → 2020-06-27 | Outpatient (CLI) | payer OTHER ==
[~2020-06-27] MED LIST changes: +AZIT250T PO
--- NOTE | 2020-06-27 15:52 | RAD ---
Examination: Limited left breast ultrasound. INDICATION: Tender left breast lump in a 30-year-old female. COMPARISON: No prior images are available TECHNIQUE: Grayscale and color Doppler imaging of the area of concern was performed in the inferior left breast. FINDINGS: A hypoechoic 1.7 cm wide lesion in the transverse orientation and 8 mm deep and 10 mm long on the craniocaudal dimension is identified with exuberant internal vascularity and an apparent stalk leading up to the skin surface at the left 6:00 position breast along the inframammary fold. This is within the dermis and is associated with peripheral echogenicity, posterior acoustic enhancement and mild irregularity to the arriola. IMPRESSION: Benign inflamed sebaceous cyst in the inframammary fold of the left breast at the 6:00 position. Recommend clinical management, which may include surgical biopsy if there are any clinically suspicious findings. In the absence of any clinically suspicious findings, age-appropriate routine mammographic screening is recommended. BI-RADS Category 2 Benign findings
== END | disposition home or self-care (01) ==
LOC: US 13:48
PROVIDERS: ATTEND Family Medicine
DX: N60.02 Solitary cyst of left breast (principal); N61.1 Abscess of the breast and nipple
CPT/HCPCS: 76641

== ENCOUNTER → 2020-09-25 | Outpatient (CLI) | payer OTHER ==
--- NOTE | 2020-09-25 17:18 | RAD ---
Study: CR XR LT TOE 2+ VIEWS Indication: Left toe injury. Comparison: None. Findings: The tip of the fifth toe distal phalanx is mildly irregular but no displaced fracture fragment is andres ntified. No traumatic malalignment. No retained radiopaque foreign body. Impression: No displaced fracture seen throughout the foot. If there is ongoing concern follow-up radiographs in 2 weeks could be performed at which time healing related changes of an occult fracture would expected ly be seen. Electronically signed by: ROGELIO BUCKLEY MD (09/25/2020 5:16 PM) [facility]
== END ==
LOC: PMG 14:15
PROVIDERS: ATTEND Physician Assistant
DX: S99.822A Other specified injuries of left foot, initial encounter (principal); X58.XXXA Exposure to other specified factors, initial encounter; Y93.89 Activity, other specified; Y92.89 Other specified places as the place of occurrence of the external cause; Y99.8 Other external cause status
CPT/HCPCS: 73660

== ENCOUNTER 2021-06-05 21:18 | Emergency (ER) | payer OTHER ==
[~2021-06-05] VITALS: Ht 160 cm; Wt 122.0 kg
[~2021-06-05 21:18] MED LIST changes: -DOXY100C2 PO; +DOXY100C3 PO; +SERT-269; -SERT100T8
[2021-06-05 21:50] VITALS: BP 135/90
--- NOTE | 2021-06-05 21:53 | PHYS DOC ---
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 States she has been trying to believe her primary care however is not able to get in until today. States she has been on 2 different muscle relaxers, and had just started on another one today. States the discomfort continues and she has not been able to sleep because of the discomfort. She denies any urinary symptoms, denies any hematuria, denies any urinary frequency or dysuria. Denies any trauma. Denies any single event that would cause this discomfort. Denies any recent fevers. Denies any loss of bowel or bladder. States she feels a shooting pain that goes along her right side and shoots down to her right leg. She is ambulatory at home however she reports her discomfort has been a little bit worse. She has tried 2 ibuprofen in the muscle relaxer today without any improvement (ELIEL CUELLRA APRN) Review of Systems Review of Systems Constitutional: Denies fever or chills [] Respiratory: Denies cough or shortness of breath [] Cardiovascular: No additional information not addressed in HPI [] GI: Denies abdominal pain, nausea, vomiting, bloody stools or diarrhea [] : Denies dysuria or hematuria [] Musculoskeletal: Denies joint pain [] states she has had back pain for the last month Integument: Denies rash or skin lesions [] Neurologic: Denies headache, focal weakness or sensory changes [] Endocrine: Denies polyuria or polydipsia [] All other systems were reviewed and found to be within normal limits, except as documented in this note. (ELIEL CUELLAR APRN) Allergies Allergies Allergies Coded Allergies Type Severity Reaction Last Updated Verified No Known Drug Allergies 10/17/16 No (ELIEL CUELLAR APRN) Physical Exam Physical Exam Constitutional: Well developed, well nourished, no acute distress, non-toxic appearance. [] Obese HENT: Normocephalic, atraumatic, bilateral external ears normal, oropharynx moist, no oral exudates, nose normal. [] Eyes: PERRLA, EOMI, conjunctiva normal, no discharge. [] Neck: Normal range of motion, no tenderness, supple, no stridor. [] Cardiovascular:Heart rate regular rhythm, no murmur [] Lungs & Thorax: Bilateral breath sounds clear to auscultation [] Abdomen: Bowel sounds normal, soft, no tenderness, no masses, no pulsatile masses. [] Skin: Warm, dry, no erythema, no rash. [] Back: No tenderness, no CVA tenderness. [] No tenderness over spinal processes. Notes discomfort lateral right side extending down lateral aspect down the right leg. No CVA tenderness noted. No rash or lesions noted. Discomfort worsens when raising right leg Extremities: No tenderness, no cyanosis, no clubbing, ROM intact, no edema. [] Neurologic: Alert and oriented X 3, normal motor function, normal sensory function, no focal deficits noted. [] Psychologic: Affect normal, judgement normal, mood normal. [] (ELIEL CUELLAR APRN) EKG EKG [] (ELIEL CUELLAR APRN) Radiology/Procedures Radiology/Procedures [] (ELIEL CUELLAR APRN) Heart Score C/O Chest Pain: N/A Risk Factors: Risk Factors: DM, Current or recent (<one month) smoker, HTN, HLP, family history of CAD, obesity. Risk Scores: Risk Factors: DM, Current or recent (<one month) smoker, HTN, HLP, family history of CAD, obesity. (ELIEL CUELLAR APRN) Course & Med Decision Making Course & Med Decision Making Pertinent Labs and Imaging studies reviewed. (See chart for details) [] Patient without trauma, with 1 month of recurring back pain, shooting pain in her right hip. Suspicious for sciatic type discomfort. She has muscle relaxants on, she has been trying anti-inflammatories. Will provide a steroid dose at this time provide pain medication at this time. She does have follow-up appoint with primary care scheduled and was advised by her primary care to contact them again if she did not have any improvement. Will recommend patient continue to follow-up with primary care, provide management of discomfort at this time (ELIEL CUELLAR APRN) Dragon Disclaimer Dragon Disclaimer This electronic medical record was generated, in whole or in part, using a voice recognition dictation system. (ELIEL CUELLAR APRN) Attending Co-Sign The patient was seen and interviewed as well as examined at the bedside. The chart was reviewed. The case was discussed. Agree with the plan of care. (HARPAL CHEATHAM DO) Departure Departure: Impression: Primary Impression: Back pain with right-sided sciatica Disposition: HOME / SELF CARE / HOMELESS Condition: STABLE Referrals: NILSA DONOVAN MD (PCP) Patient Instructions: Back Pain, Adult, [place], Sciatica Additional Instructions: As discussed, continue to take ibuprofen as prescribed by your primary care. Continue to take the muscle relaxers as prescribed by your primary care provider. Avoid lifting anything heavy until you are cleared by your primary care provider. Try to contact your primary care provider tomorrow if you are feeling any better after your treatment today. ELIEL CUELLAR APRN Jun 05, 2021 21:53 HARPAL CHEATHAM DO Jun 06, 2021 19:01
[2021-06-05] MEDS ORDERED: methylPREDNISolone ACETATE 80 MG/ML VIAL. IM ONE (22:00)
[2021-06-05] MEDS ORDERED: HYDROcodone/APAP 5/325MG 1 TAB TABLET PO ONE (22:00)
== END 2021-06-05 22:10 | disposition home or self-care (01) ==
LOC: ER 21:18
DX: M54.41 Lumbago with sciatica, right side (principal)
CPT/HCPCS: 96372; 99283; J1040

== ENCOUNTER 2021-10-22 17:47 | Emergency (ER) | payer OTHER ==
[~2021-10-22] VITALS: Ht 160 cm; Wt 122.0 kg
[~2021-10-22 17:47] MED LIST changes: -CYCL-331 PO; +CYCL10TA19 PO
[2021-10-22 19:03] LABS: INFLUENZA A PATIENT NEGATIVE (NEGATIVE); INFLUENZA B PATIENT NEGATIVE (NEGATIVE)
--- NOTE | 2021-10-22 19:26 | PHYS DOC ---
Past History Past Medical History: Migraines (AURELIO HUSAIN APRN) Past Surgical History: No Surgical History (AURELIO HUSAIN APRN) Smoking: Non-smoker Alcohol Use: None Drug Use: None (AURELIO HUSAIN APRN) Adult General Chief Complaint Chief Complaint: FEVER HPI HPI Patient is a 31-year-old female who presents emergency department complaining of headaches, fevers chills at home for the past 3 days. Patient reports she has not taken any medications for her headaches fevers or chills, reports her headache pain at a 4 or 5 out of 10. Patient suspects he may have come in contact with the COVID-19 virus and wanted to be checked today. Patient reports her last menstrual cycle 10 days ago with normal duration of flow, patient denies other physical complaints or physical concerns. Patient states she has not received the COVID-19 virus vaccination series nor the flu vaccination. (AURELIO HUSAIN APRN) Review of Systems Review of Systems 14 body systems of review of systems have been reviewed. See HPI for pertinent positives and negative responses, otherwise all other systems are negative, nonpertinent or noncontributory. Constitutional: Negative except as outlined in HPI above. Skin: Negative except as outlined in HPI above. Eyes: Negative except as outlined in HPI above. HENT: Negative except as outlined in HPI above. Respiratory: Negative except as outlined in HPI above. Cardiovascular: Negative except as outlined in HPI above. GI: Negative except as outlined in HPI above. : Negative except as outlined in HPI above. Musculoskeletal: Negative except as outlined in HPI above. Integument: Negative except as outlined in HPI above. Neurologic: Negative except as outlined in HPI above. Endocrine: Negative except as outlined in HPI above. Lymphatic: Negative except as outlined in HPI above. Psychiatric: Negative except as outlined in HPI above. (AURELIO HUSAIN APRN) Allergies Allergies Allergies Coded Allergies Type Severity Reaction Last Updated Verified No Known Drug Allergies 10/17/16 No (AURELIO HUSAIN APRN) Physical Exam Physical Exam Constitutional: Well developed, well nourished, no acute distress, non-toxic appearance. 31-year-old female was on the phone during examination, is in no apparent distress. HENT: Normocephalic, atraumatic. Eyes: Conjunctiva normal, no discharge. Neck: Normal range of motion, no stridor. Cardiovascular: No cyanosis appreciated, distal cap refill less than 2 seconds. Lungs & Thorax: Patient is in no respiratory distress, no audible adventitious lung sounds appreciated. Lung sounds clear to auscultate all lung michael. Abdomen: Nontender, no abnormalities noted. Skin: Warm, dry, no erythema, no rash. Back: No tenderness, no deformities. Extremities: No tenderness, no cyanosis, no clubbing, ROM intact, no edema. Neurologic: Alert and oriented X 3, normal motor function, normal sensory function, no focal deficits noted. Psychologic: Affect normal, judgement normal, mood normal. (AURELIO HUSAIN APRN) Current Patient Data Vital Signs Vital Signs Date Time Temp Pulse Resp B/P (MAP) Pulse Ox O2 Delivery O2 Flow Rate FiO2 10/22/21 18:16 100.1 114 16 135/90 (105) 98 Room Air Lab Results Laboratory Tests Test 10/22/21 18:18 Influenza Type A (Rapid) Negative (NEGATIVE) Influenza Type B (Rapid) Negative (NEGATIVE) SARS-CoV-2 Antigen (Rapid) Positive (NEGATIVE) *A (AURELIO HUSAIN APRN) EKG EKG [] (AURELIO HUSAIN APRN) Radiology/Procedures Radiology/Procedures [] (AURELIO HUSAIN APRN) Heart Score C/O Chest Pain: No Risk Factors: Risk Factors: DM, Current or recent (<one month) smoker, HTN, HLP, family history of CAD, obesity. Risk Scores: Risk Factors: DM, Current or recent (<one month) smoker, HTN, HLP, family hist ory of CAD, obesity. (AURELIO HUSAIN APRN) Course & Med Decision Making Course & Med Decision Making Pertinent Labs and Imaging studies reviewed. (See chart for details) 31-year-old female, vital signs reviewed, presents emerged from concerning fevers and chills with headaches at home for the past 3 days. Physical examination consistent with viral syndrome, will order rapid flu, rapid COVID testing. Patient's rapid flu negative, rapid COVID19 testing positive. Will give patient Tylenol and p.o. Motrin for fevers/chills/pains. Patient's initial blood pressure improving, patient is no longer tachycardic, patient reports that she started to feel much better, discussed with patient COVID-19 virus home care instructions, will attached to discharge instructions, patient gave verbal understanding of and is amenable to ED discharge planning. (AURELIO HUSAIN APRN) Carlene Disclaimer Carlene Disclaimer This electronic medical record was generated, in whole or in part, using a voice recognition dictation system. (AURELIO HUSAIN APRN) Departure Departure: Impression: Primary Impression: COVID-19 virus infection Disposition: HOME / SELF CARE / HOMELESS Condition: GOOD Referrals: NILSA DONOVAN MD (PCP) Patient Instructions: Viral Syndrome Additional Instructions: You were seen today in the emergency department for fevers and headaches. Your COVID-19 test is positive. You were given Tylenol and Motrin for discomfort today. I have attached COVID-19 virus information to this document, please review. Please follow-up with your primary care physician soon for ongoing symptoms. Thank you for visiting our Emergency Department. It was a pleasure taking care of you today in the emergency department and we appreciate you trus ting us with your care. If any additional problems come up don't hesitate to return to visit us. Please follow up with your primary care provider so they can plan additional care if needed and know about the problem that you had. If symptoms worsen come back to the Emergency Department. Any concerning symptoms that start such as chest pain, shortness of air, weakness or numbness on one side of the body, running high fevers or any other concerning symptoms return to the ER. You have been tested for or diagnosed with COVID-19. It is an infection caused by a new type of coronavirus. COVID-19 will cause cold-like or mild flu symptoms in most. It can cause more severe symptoms like problems breathing in some. There is no treatment for COVID-19. The body will clear the infection over time. Self-care will help to ease discomfort. Steps to Take: Self-Care Rest as needed. Healthy habits may help you feel better. Steps include: Choose healthy foods including fruits and vegetables. Drink water throughout the day. Get plenty of sleep each night. If you smoke, try to quit. It may ease breathing. Avoid alcohol. Keep Others Healthy The virus can spread to others. Droplets are released every time you sneeze or cough. The droplets can get into the mouth, nose, or eyes of people near you and lead to infection. To lower the chances of spreading COVID-19 to others: Stay at home until your doctor has said it is safe to leave. If you tested positive this will mean staying isolated until both of the following are true: At least 7 days have passed since the start of illness. You are free of fever for at least 72 hours without the use of medicine. During this time: - Avoid public areas, events, or transportation. Do not return to work or school until your doctor has said it is safe to do so. - Call ahead if you need to go to a medical center. Let them know you may have COVID-19. It will help them guide you where to go. They may also ask you to wear a facemask when you come to the office. - If you call for emergency medical services, let them know you may have COVID- 19. While at home: - Try to avoid close contact with others. Stay about 6 feet away. - If possible, spend most of your time in a separate room from others. - Use a face mask if you will be in close contact with others such as sharing a room or vehicle. - Have someone wipe down common surfaces in the home. Use household automatic paint sprayer operator every day on areas like doorknobs, counters, or sinks. - Cough or sneeze into a tissue. Throw the tissue away right after use. If a tissue is not available, cough or sneeze into your elbow. - Wash your hands often. Wash them after sneezing or coughing. Use soap and water and wash for at least 20 seconds. Alcohol based hand spot cleaner can be used if soap and water is not available. - Do not prepare food for others. Avoid sharing personal items like forks, spoons, or toothbrushes. - Avoid close contact with pets while you are sick. There is no evidence of the virus passing to pets. This is a safety step until more is known about this virus. Isolation can be frustrating. Social interaction can help. Keep in touch with friends and family through phone and tech options. You can still interact with others in your home, just keep a safe distance of about 6 feet. Follow-up: Your doctors office will check in with you to see if there are any changes in your health. You may be asked to keep track of symptoms to share with them. They will also let you know when you are clear to be in public again. Problems to Look Out For: Contact your doctor if your recovery is not going as you expect. Get emergency care if you have problems such as: - Trouble breathing - Nonstop chest pain or pressure - Changes in awareness, confusion, or problems waking - Lips or face have bluish color - Worsening of symptoms If you think you have an emergency, call for emergency medical services right away. As taken from [facility] Attending Signature Attending Signature I have participated in the care of this patient and I have reviewed and agree with all pertinent clinical information above including history, exam, and recommendations. (ILANA ANDERSON MD) AURELIO HUSAIN APRN Oct 22, 2021 19:26 ILANA ANDERSON MD Oct 26, 2021 20:43
[2021-10-22] MEDS ORDERED: IBUPROFEN 600 MG TABLET. PO ONE (19:30)
[2021-10-22] MEDS ORDERED: ACETAMINOPHEN 500 MG TABLET PO ONE (19:30)
[2021-10-22 20:52] VITALS: BP 153/95
== END 2021-10-22 21:00 | disposition home or self-care (01) ==
LOC: ER 17:47
DX: U07.1 COVID-19 (principal); G43.909 Migraine, unspecified, not intractable, without status migrainosus
CPT/HCPCS: 87428; 99283

== ENCOUNTER 2021-10-28 10:53 | Emergency (ER) | payer OTHER ==
[~2021-10-28] VITALS: Ht 160 cm; Wt 128.7 kg
[2021-10-28] MEDS ORDERED: ONDANSETRON PF 4 MG/2 ML VIAL. IVP ONE (11:15)
[2021-10-28] MEDS ORDERED: IV NORMAL SALINE 1,000ML 1,000 ML IV ONE (11:15)
--- NOTE | 2021-10-28 11:35 | PHYS DOC ---
Past History Past Medical History: Migraines (DAVON GUTIERREZ APRN) Past Surgical History: No Surgical History (DAVON GUTIERREZ APRN) Smoking: Non-smoker Alcohol Use: None Drug Use: None (DAVON GUTIERREZ APRN) General Adult EDM: Chief Complaint: NAUSEA/VOMITING/DIARRHEA HPI: HPI: Patient is a 31-year-old male that presents today with cough and nausea and vomiting. Patient states that she was diagnosed with COVID last week she states she is 6 days into her symptoms, she states she is having increased cough and wa nts to know when that is going to go away, she also states she has had increased nausea and vomiting and has been unable to keep by mouth fluids down. She also states that she just overall health is not feeling well she is fatigued. (DAVON GUTIERREZ APRN) Review of Systems: Review of Systems: Constitutional: Denies fever or chills Eyes: Denies change in visual acuity HENT: Denies nasal congestion or sore throat Respiratory: Cough Cardiovascular: Denies chest pain or edema GI: Nausea and vomiting : Denies dysuria Musculoskeletal: Denies back pain or joint pain Integument: Denies rash Neurologic: Fatigue Endocrine: Denies polyuria or polydipsia Lymphatic: Denies swollen glands Psychiatric: Denies depression or anxiety (DAVON GUTIERREZ APRN) Current Medications: Current Meds: Current Medications Medications (Trade) Dose Ordered Sig/Emelyn Start Time Stop Time Status Last Admin Dose Admin Ondansetron HCl (Zofran) 4 mg 1X ONCE 10/28/21 11:15 10/28/21 11:16 DC Sodium Chloride 1,000 ml @ 1,000 mls/hr 1X ONCE 10/28/21 11:15 10/28/21 12:14 (DAVON GUTIERREZ APRN) Allergies: Allergies: Allergies Coded Allergies Type Severity Reaction Last Updated Verified No Known Drug Allergies 10/17/16 No (DAVON GUTIERREZ APRN) Physical Exam: PE: Constitutional: Well developed, well nourished, mild distress, non-toxic appearance. [] HENT: Normocephalic, atraumatic, bilateral external ears normal, oropharynx moist, no oral exudates, nose normal. [] Eyes: PERRLA, EOMI, conjunctiva normal, no discharge. [] Neck: Normal range of motion, no tenderness, supple, no stridor. [] Cardiovascular:Heart rate regular rhythm, no murmur [] Lungs & Thorax: Bilateral breath sounds clear to auscultation, dry cough Abdomen: Bowel sounds normal, soft, no tenderness, no masses, no pulsatile masses. [] Skin: Warm, dry, no erythema, no rash. [] Back: No tenderness, no CVA tenderness. [] Extremities: No tenderness, no cyanosis, no clubbing, ROM intact, no edema. [] Neurologic: Alert and oriented X 3, normal motor function, normal sensory function, no focal deficits noted. [] Psychologic: Affect normal, judgement normal, mood normal. [] (DAVON GUTIERREZ APRN) Current Patient Data: Labs: Laboratory Tests Test 10/28/21 12:03 10/28/21 12:06 10/28/21 12:12 Urine Collection Type Unknown Urine Color Yellow Urine Clarity Hazy Urine pH 5.5 Urine Specific [place] 1.025 Urine Protein 100 mg/dl Urine Glucose (UA) Neg mg/dL Urine Ketones (Stick) Trace mg/dL Urine Blood Trace Urine Nitrite Neg Urine Bilirubin Neg Urine Urobilinogen Dipstick 0.2 mg/dL Urine Leukocyte Esterase Neg Urine RBC Occ /HPF Urine WBC 5-10 /HPF Urine Squamous Epithelial Cells Mod /LPF Urine Bacteria 0 /HPF Urine Hyaline Casts Few /HPF Urine Mucus Slight /LPF White Blood Count 4.9 x10^3/uL Red Blood Count 4.47 x10^6/uL Hemoglobin 11.8 g/dL Hematocrit 36.4 % Mean Corpuscular Volume 81 fL Mean Corpuscular Hemoglobin 27 pg Mean Corpuscular Hemoglobin Concent 33 g/dL Red Cell Distribution Width 14.9 % Platelet Count 182 x10^3/uL Neutrophils (%) (Auto) 64 % Lymphocytes (%) (Auto) 29 % Monocytes (%) (Auto) 6 % Eosinophils (%) (Auto) 0 % Basophils (%) (Auto) 0 % Neutrophils # (Auto) 3.1 x10^3uL Lymphocytes # (Auto) 1.4 x10^3/uL Monocytes # (Auto) 0.3 x10^3/uL Eosinophils # (Auto) 0.0 x10^3/uL Basophils # (Auto) 0.0 x10^3/uL Sodium Level 139 mmol/L Potassium Level 3.0 mmol/L Chloride Level 97 mmol/L Carbon Dioxide Level 28 mmol/L Anion Gap 14 Blood Urea Nitrogen 10 mg/dL Creatinine 1.3 mg/dL Estimated GFR (Cockcroft-Gault) 57.8 BUN/Creatinine Ratio 8 Glucose Level 131 mg/dL Calcium Level 7.7 mg/dL Total Bilirubin 0.3 mg/dL Aspartate Amino Transf (AST/SGOT) 31 U/L Alanine Aminotransferase (ALT/SGPT) 36 U/L Alkaline Phosphatase 56 U/L Total Protein 7.6 g/dL Albumin 3.8 g/dL Albumin/Globulin Ratio 1.0 Lipase 134 U/L Bedside Urine HCG, Qualitative hcg negative Current Medications Medications (Trade) Dose Ordered Sig/Emelyn Route PRN Reason Start Time Stop Time Status Last Admin Dose Admin Sodium Chloride 1,000 ml @ 1,000 mls/hr 1X ONCE IV 10/28/21 11:15 10/28/21 12:14 DC 10/28/21 11:15 Ondansetron HCl (Zofran) 4 mg 1X ONCE IVP 10/28/21 11:15 10/28/21 11:16 DC 10/28/21 11:15 Potassium Chloride (Klor-Con) 40 meq 1X ONCE PO 10/28/21 13:00 10/28/21 13:02 DC 10/28/21 13:00 Vital Signs: Vital Signs Date Time Temp Pulse Resp B/P (MAP) Pulse Ox O2 Delivery O2 Flow Rate FiO2 10/28/21 11:03 100.4 114 16 156/108 (124) 96 Room Air (DAVON GUTIERREZ APRN) EKG: EKG: [] (DAVON GUTIERREZ APRN) Radiology/Procedures: Radiology/Procedures: REASON: COUGH, COVID + PROCEDURE: CHEST AP ONLY XR CHEST 1V History: Reason: COUGH, COVID + / Spl. Instructions: / History: Comparison: None. Findings: Low lung volumes. Mild multifocal opacities bilaterally. No pleural effusion. No pneumothorax. Normal heart size. Impression: 1. Mild multifocal ill-defined opacities, can be seen with viral pneumonia. 2. Low lung volumes. Electronically signed by: Robin Clark DO (10/28/2021 11:53 AM) [id number][] (DAVON GUTIERREZ APRN) Heart Score: C/O Chest Pain: N/A Risk Factors: Risk Factors: DM, Current or recent (<one month) smoker, HTN, HLP, family history of CAD, obesity. Risk Scores: Score 0 - 3: 2.5% MACE over next 6 weeks - Discharge Home Score 4 - 6: 20.3% MACE over next 6 weeks - Admit for Clinical Observation Score 7 - 10: 72.7% MACE over next 6 weeks - Early Invasive Strategies (DAVON GUTIERREZ APRN) Course & Med Decision Making: Course & Med Decision Making Pertinent Labs and Imaging studies reviewed. (See chart for details) 1420 reviewed radiological and laboratory findings with patient. Patient's potassium while here in the department was 3.0. Patient was given 40 mEq of potassium here in the emergency department we will also send her prescription to take 40 mEq x 3 days as well. Patient was also instructed to take [id number] calcium with vitamin D as label directed. Patient is to follow-up with her primary care physician after that her extended COVID quarantine for further management of her cough, her low potassium and low calcium. Patient will be given an incentive spirometer and instruction on use patient is to take increased deep breaths 4-5 times daily to help with lung expansion and decrease atelectasis. Patient was also instructed to get a cool- mist humidifier, take [id number] medications such as cough drops or cough suppressants to help with her cough symptoms. Patient verbalized understanding of this and is agreeable to the plan of care. (DAVON GUTIERREZ APRN) Course & Med Decision Making I was the Attending physician on the above date of service of this patient. This patient was evaluated, examined, treated, and dispositioned from the emergency department by the mid-level practitioner. I reviewed history, physical exam findings and plan of care with midlevel practitioner and agreed to provided care Electronically signed, Destinee Parsons DO (DESTINEE PARSONS DO) Carlene Disclaimer: Carlene Disclaimer: This electronic medical record was generated, in whole or in part, using a voice recognition dictation system. (DAVON GUTIERREZ APRN) Departure Departure: Impression: Primary Impression: COVID-19 virus infection Additional Impressions: Nausea & vomiting Qualified Codes: R11.2 - Nausea with vomiting, unspecified Hypokalemia Disposition: 01 HOME / SELF CARE / HOMELESS Condition: STABLE Referrals: NILSA DONOVAN MD (PCP) Patient Instructions: Clear Liquid Diet, Hypokalemia, Nausea and Vomiting Additional Instructions: Potassium chloride 40 mEq by mouth daily for 3 days Clear liquids for the next 24 hours, then follow a bland or brat diet for the next 24 hours which can include bananas, rice, applesauce, toast, or mashed potatoes plain then advance as tolerated Increase by mouth fluids should be drinking between 2 to 3 L of fluid a day Continue quarantine for the another 4 days, expect that a cough may last greater then the length of the illness, follow-up with your primary care physician for further management of your cough on an outpatient basis. Zofran take 1 tablet every 6-8 hours as needed for nausea. Use with caution may cause constipation. You have been tested for or diagnosed with COVID-19. It is an infection caused by a new type of coronavirus. COVID-19 will cause cold-like or mild flu symptoms in most. It can cause more severe symptoms like problems breathing in some. There is no treatment for COVID-19. The body will clear the infection over time. Self-care will help to ease discomfort. Steps to Take: Self-Care Rest as needed. Healthy habits may help you feel better. Steps include: Choose healthy foods including fruits and vegetables. Drink water throughout the day. Get plenty of sleep each night. If you smoke, try to quit. It may ease breathing. Avoid alcohol. Keep Others Healthy The virus can spread to others. Droplets are released every time you sneeze or cough. The droplets can get into the mouth, nose, or eyes of people near you and lead to infection. To lower the chances of spreading COVID-19 to others: Stay at home until your doctor has said it is safe to leave. If you tested positive this will mean staying isolated until both of the following are true: At least 7 days have passed since the start of illness. You are free of fever for at least 72 hours without the use of medicine. During this time: - Avoid public areas, events, or transportation. Do not return to work or school until your doctor has said it is safe to do so. - Call ahead if you need to go to a medical center. Let them know you may have COVID-19. It will help them guide you where to go. They may also ask you to wear a facemask when you come to the office. - If you call for emergency medical services, let them know you may have COVID- 19. While at home: - Try to avoid close contact with others. Stay about 6 feet away. - If possible, spend most of your time in a separate room from others. - Use a face mask if you will be in close contact with others such as sharing a room or vehicle. - Have someone wipe down common surfaces in the home. Use household aircrewman every day on areas like doorknobs, counters, or sinks. - Cough or sneeze into a tissue. Throw the tissue away right after use. If a tissue is not available, cough or sneeze into your elbow. - Wash your hands often. Wash them after sneezing or coughing. Use soap and water and wash for at least 20 seconds. Alcohol based hand roller cleaner can be used if soap and water is not available. - Do not prepare food for others. Avoid sharing personal items like forks, spoons, or toothbrushes. - Avoid close contact with pets while you are sick. There is no evidence of the virus passing to pets. This is a safety step until more is known about this virus. Isolation can be frustrating. Social interaction can help. Keep in touch with friends and family through phone and tech options. You can still interact with others in your home, just keep a safe distance of about 6 feet. Follow-up: Your doctors office will check in with you to see if there are any changes in your health. You may be asked to keep track of symptoms to share with them. They will also let you know when you are clear to be in public again. Problems to Look Out For: Contact your doctor if your recovery is not going as you expect. Get emergency care if you have problems such as: - Trouble breathing - Nonstop chest pain or pressure - Changes in awareness, confusion, or problems waking - Lips or face have bluish color - Worsening of symptoms If you think you have an emergency, call for emergency medical services right away. As taken from [facility] Potassium Chloride (POTASSIUM CHLORIDE ) 20 Meq Tablet.er 40 MEQ PO DAILY for SUPPLEMENT for 3 Days, #6 TAB Prov: DAVON GUTIERREZ FAMILY SERVICES WORKER 10/28/21 Ondansetron (ONDANSETRON ODT) 4 Mg Tab.rapdis 1 TAB PO PRN Q6-8HRS for nausea, #16 TAB Prov: DAVON GUTIERREZ FAMILY SERVICES WORKER 10/28/21 DAVON GUTIERREZ FAMILY SERVICES WORKER Oct 28, 2021 11:35 DESTINEE PARSONS DO Oct 30, 2021 07:20
--- NOTE | 2021-10-28 11:56 | RAD ---
XR CHEST 1V History: Reason: COUGH, COVID + / Spl. Instructions: / History: Comparison: None. Findings: Low lung volumes. Mild multifocal opacities bilaterally. No pleural effusion. No pneumothorax. Normal heart size. Impression: 1. Mild multifocal ill-defined opacities, can be seen with viral pneumonia. 2. Low lung volumes. Electronically signed by: Robin Clark DO (10/28/2021 11:53 AM) [id number]
[2021-10-28 12:32] LABS: BASO % 0 % (0-3); EOS % 0 % (0-3); HEMATOCRIT 36.4 % (36.0-47.0); HEMOGLOBIN 11.8 g/dL (12.0-15.5); LYMPH # 1.4 x10^3/uL (1.0-4.8); LYMPH % 29 % (24-48); MEAN CORPUSCULAR HEMOGLOBIN 27 pg (25-35); MEAN CORPUSCULAR HGB CONC 33 g/dL (31-37); MEAN CORPUSCULAR VOLUME 81 fL (79-100); MONO # 0.3 x10^3/uL (0.0-1.1); MONO % 6 % (0-9); NEUT # 3.1 x10^3uL (1.8-7.7); NEUT % 64 % (31-73); PLATELET COUNT 182 x10^3/uL (140-400); RED BLOOD COUNT 4.47 x10^6/uL (3.50-5.40); RED CELL DISTRIBUTION WIDTH 14.9 % (11.5-14.5); WHITE BLOOD COUNT 4.9 x10^3/uL (4.0-11.0)
[2021-10-28 12:39] VITALS: BP 148/69
[2021-10-28 12:42] LABS: ALBUMIN 3.8 g/dL (3.4-5.0); CALCIUM 7.7 mg/dL (8.5-10.1); CREATININE 1.3 mg/dL (0.6-1.0); GFR 57.8; TOTAL BILIRUBIN 0.3 mg/dL (0.2-1.0); TOTAL PROTEIN 7.6 g/dL (6.4-8.2)
[2021-10-28] MEDS ORDERED: POTASSIUM CHLORIDE 20 MEQ TABLET.ER. PO ONE (13:00)
[2021-10-28 13:53] LABS: BILIRUBIN,URINE NEG (NEG); CLARITY,URINE HAZY; COLOR,URINE YELLOW; GLUCOSE,URINE NEG (NEG); NITRITE,URINE NEG (NEG); RBC,URINE OCC /HPF (0-2); UROBILINOGEN,URINE 0.2 mg/dL (0.2 mg/dL)
[2021-10-28 13:54] LABS: BACTERIA,URINE 0 /HPF (0-FEW); HYALINE CASTS, URINE FEW /HPF; SQUAMOUS EPITHELIAL CELL,UR MOD /LPF
[2021-10-28] MEDS ORDERED: ONDA4TAB12 PO (14:28)
[2021-10-28] MEDS ORDERED: POTA20TA4 PO (14:28)
== END 2021-10-28 14:37 | disposition home or self-care (01) ==
LOC: ER 10:53
DX: U07.1 COVID-19 (principal); R11.2 Nausea with vomiting, unspecified; E87.6 Hypokalemia
CPT/HCPCS: 36415; 71045; 80053; 81001; 81025; 83690; 85025; 87086; 87186; 96361; 96374; 99284; J2405; J7030

== ENCOUNTER 2022-01-26 19:53 | Emergency (ER) | payer OTHER ==
[~2022-01-26] VITALS: Ht 160 cm; Wt 137.0 kg
[~2022-01-26 19:53] MED LIST changes: +ONDA4TAB12 PO; +POTA20TA4 PO
--- NOTE | 2022-01-26 22:00 | PHYS DOC ---
Past History Past Medical History: Migraines (BETHEL REIS APRN) Past Surgical History: No Surgical History (BETHEL REIS APRN) Smoking: Non-smoker Alcohol Use: None Drug Use: None (BETHEL REIS APRN) General Adult EDM: Chief Complaint: LACERATION/AVULSION HPI: HPI: Patient is a 31-year-old female presents with injury to her right, middle nail. Patient states that she was cutting up vegetables when she accidentally cut her fingernail with a knife. Patient cut through her acrylic nail. No bleeding. No injury to the skin. Range of motion and sensation are intact. (BETHEL REIS APRN) Review of Systems: Review of Systems: ROS At least 10 ROS systems have been reviewed and are negative except as documented in the HPI. General: Negative except as outlined in HPI above. Skin: Negative except as outlined in HPI above. HEENT: Negative except as outlined in HPI above. Neck: Negative except as outlined in HPI above. Respiratory: Negative except as outlined in HPI above.. Cardiovascular: Negative except as outlined in HPI above. Abdomen: Negative except as outlined in HPI above. : Negative except as outlined in HPI above. Back/MSK: Negative except as outlined in HPI above. Neuro: Negative except as outlined in HPI above. Psych: Negative except as outlined in HPI above. (BETHEL REIS APRN) Allergies: Allergies: Allergies Coded Allergies Type Severity Reaction Last Updated Verified No Known Drug Allergies 10/17/16 No (BETHEL REIS APRN) Physical Exam: PE: Constitutional: Well developed, well nourished, no acute distress, non-toxic appearance. [] HENT: Normocephalic, atraumatic, bilateral external ears normal, oropharynx moist, no oral exudates, nose normal. [] Eyes: PERRLA, EOMI, conjunctiva normal, no discharge. [] Neck: Normal range of motion, no tenderness, supple, no stridor. [] Cardiovascular:Heart rate regular rhythm, no murmur [] Lungs & Thorax: Bilateral breath sounds clear to auscultation [] Abdomen: Bowel sounds normal, soft, no tenderness, no masses, no pulsatile masses. [] Skin: Warm, dry, no erythema, no rash Back: No tenderness, no CVA tenderness. [] Extremities: Left, middle finger tenderness, no cyanosis, no clubbing, ROM intact, no edema. [] Neurologic: Alert and oriented X 3, normal motor function, normal sensory function, no focal deficits noted. [] Psychologic: Affect normal, judgement normal, mood normal. [] (BETHEL REIS APRN) Current Patient Data: Vital Signs: Vital Signs Date Time Temp Pulse Resp B/P (MAP) Pulse Ox O2 Delivery O2 Flow Rate FiO2 01/26/22 19:58 98.5 120 18 149/87 (107) 98 Room Air (BETHEL REIS APRN) EKG: EKG: [] (BETHEL REIS APRN) Radiology/Procedures: Radiology/Procedures: [] (BETHEL REIS APRN) Heart Score: C/O Chest Pain: No Risk Factors: Risk Factors: DM, Current or recent (<one month) smoker, HTN, HLP, family history of CAD, obesity. Risk Scores: Score 0 - 3: 2.5% MACE over next 6 weeks - Discharge Home Score 4 - 6: 20.3% MACE over next 6 weeks - Admit for Clinical Observation Score 7 - 10: 72.7% MACE over next 6 weeks - Early Invasive Strategies (BETHEL REIS APRN) Course & Med Decision Making: Course & Med Decision Making Pertinent Labs and Imaging studies reviewed. (See chart for details) [] 31-year-old male presents with injury to right, middle nail. Patient was cutting vegetables when she cut her fingernail with a knife. No bleeding. Patient acrylic nail was cut through but her real nail was still attached on the outer left side. Reporting pain with physical exam. Range of motion and sensation are intact. Finger was soaked in water. After soaking finger in water was able to remove the acrylic nail with scissors. (BETHEL REIS APRN) Dragon Disclaimer: Dragon Disclaimer: This electronic medical record was generated, in whole or in part, using a voice recognition dictation system. (BETHEL REIS APRN) Departure Departure: Impression: Primary Impression: Fingernail injury Qualified Codes: S69.92XA - Unspecified injury of left wrist, hand and finger(s), initial encounter Disposition: HOME / SELF CARE / HOMELESS Condition: STABLE Referrals: NILSA DONOVAN MD (PCP) Patient Instructions: Fingernail or Toenail Loss Additional Instructions: You are seen the emergency room after you injured your fingernail. We were able to remove your acrylic nail. Make sure you keep the area clean and dry. It may be sore for the next couple of days. Return to emergency room if you have worsening symptoms or concerns. Otherwise follow-up with your PCP. EMERGENCY DEPARTMENT GENERAL DISCHARGE INSTRUCTIONS Thank you for coming to [facility] (ED) today and trusting us with you care. We trust that you had a positivie experience in our Emergency Department. If you wish to speak to the department management, you may call the director at [phone]. YOUR FOLLOW UP INSTRUCTIONS ARE FOLLOWS: 1. Do you have a private Doctor? If you do not have a private doctor, please ask for a resource list of physicians or clinics that may be able to assist you with follow up care. 2. The Emergency Physician has interpreted your x-rays. The X-Ray specialist will also review them. If there is a change in the findings, you will be notified in 48 hours when at all possible. 3. A lab test or culture has been done, your results will be reviewed and you will be notified if you need a change in treatment. ADDITIONAL INSTRUCTIONS AND INFORMATION: 1. Your care today has been supervised by a physician who is specially trained in emergency care. Many problems require more than one evaluation for a complete diagnosis and treatment. We recommend that you schedule your follow up appointment as recommended to ensure complete treatment of you illness or injury. If you are unable to obtain follow up care and continue to have a problem, or if your condition worsens, we recommend that you return to the ED. 2. We are not able to safely determine your condition over the phone nor are we able to give sound medical advice over the phone. For these safety reasons, if you call for medical advice we will ask you to come to the ED for further evaluation. 3. If you have any questions regarding these discharge instructions please call the ED at [phone]. SAFETY INFORMATION: In the interest of safety, wellness, and injury prevention; we encourage you to wear your sealbelt, if you smoke; quite smoking, and we encourage family to use a protective helmet for bicycling and other sporting events that present an increased risk for head injury. IF YOUR SYMPTOMS WORSEN OR NEW SYMPTOMS DEVELOP, OR YOU HAVE CONCERNS ABOUT YOUR CONDITION; OR IF YOUR CONDITION WORSENS WHILE YOU ARE WAITING FOR YOUR FOLLOW UP APPOINTMENT; EITHER CONTACT YOUR PRIMARY CARE DOCTOR, THE PHYSICIAN WHOSE NAME AND NUMBER YOU WERE GIVEN, OR RETURN TO THE ED IMMEDIATELY. Dragon Disclaimer This chart was dictated in whole or in part using Voice Recognition software in a busy, high-work load, and often noisy Emergency Department environment. It may contain unintended and wholly unrecognized errors or omissions. (ILANA ANDERSON MD) Attending Signature Attending Signature I have participated in the care of this patient and I have reviewed and agree with all pertinent clinical information above including history, exam, and recommendations. (ILANA ANDERSON MD) BETHEL REIS APRN Jan 26, 2022 21:59 ILANA ANDERSON MD Jan 28, 2022 07:20
[2022-01-26 22:54] VITALS: BP 142/80
== END 2022-01-26 22:55 | disposition home or self-care (01) ==
LOC: ER 19:53
DX: S69.92XA Unspecified injury of left wrist, hand and finger(s), initial encounter (principal); M79.645 Pain in left finger(s); G43.909 Migraine, unspecified, not intractable, without status migrainosus; W26.0XXA Contact with knife, initial encounter; Y93.89 Activity, other specified; Y92.89 Other specified places as the place of occurrence of the external cause; Y99.8 Other external cause status
CPT/HCPCS: 99284